=== PATIENT | male | born 1940 | race Caucasian/White ===

== ENCOUNTER → 2019-01-21 | Outpatient (REF) | payer MEDICARE | LOC: M SMT 13:09 | PROVIDERS: ATTEND Nurse Practitioner Family | DX: R97.8 Other abnormal tumor markers (principal) | CPT/HCPCS: 87086; G0463 ==

== ENCOUNTER 2019-02-15 21:38 | Emergency (ER) | payer MEDICARE ==
[~2019-02-15] VITALS: Ht 177.8 cm; Wt 109.1 kg
[2019-02-15 22:15] LABS: BASO % 0.5 % (0.0-1.0); EOS # 0.4 10^3/uL (0.0-0.5); EOS % 4.7 % (0.0-3.0); HEMATOCRIT 42.7 % (42.0-52.0); HEMOGLOBIN 14.2 g/dl (13.5-17.5); LYMPH # 2.7 10^3/uL (1.5-5.0); LYMPH % 32.4 % (24.0-44.0); MEAN CORPUSCULAR HEMOGLOBIN 31.2 pg (27.0-33.0); MEAN CORPUSCULAR HGB CONC 33.3 g/dl (32.0-36.5); MEAN CORPUSCULAR VOLUME 93.8 fl (80.0-96.0); MONO # 0.6 10^3/uL (0.0-0.8); MONO % 7.3 % (0.0-5.0); NEUTROPHILS # 4.5 10^3/uL (1.5-8.5); NEUTROPHILS % 54.9 % (36.0-66.0); PLATELET COUNT, AUTOMATED 209 10^3/uL (150-450); RED BLOOD COUNT 4.55 10^6/uL (4.30-6.10); WHITE BLOOD COUNT 8.3 10^3/uL (4.0-10.0)
[2019-02-15] MEDS ORDERED: MORPHINE 2 MG/ML 1ML SYRINGE (J2270) IV ONE (22:15)
[2019-02-15] MEDS ORDERED: METOCLOPRAMIDE INJ 10MG/2ML VIAL (J2765) IV ONE (22:15)
[2019-02-15] MEDS ORDERED: KETOROLAC 30 MG/ML VIAL (J1885) IV ONE (22:15)
[2019-02-15] MEDS ORDERED: FLOM0.4C39 PO (22:23)
[2019-02-15] MEDS ORDERED: LOSA50TA88 PO (22:23)
[2019-02-15 22:36] LABS: ALT/SGPT 30 U/L (12-78); BILIRUBIN,DIRECT < 0.1 MG/DL (0.0-0.2); BILIRUBIN,TOTAL 0.3 MG/DL (0.2-1.0); BLOOD UREA NITROGEN 19 MG/DL (7-18); CALCIUM LEVEL 9.2 MG/DL (8.8-10.2); CARBON DIOXIDE LEVEL 32 MEQ/L (21-32); CHLORIDE LEVEL 104 MEQ/L (98-107); CK-MB VALUE MASS 4.9 NG/ML (<3.6); CPK CREATINE PHOSPHOKINASE 290 U/L (39-308); CREATININE FOR GFR 1.44 MG/DL (0.70-1.30); GLOMERULAR FILTRATION RATE 50.5 (>42); GLUCOSE, FASTING 131 MG/DL (70-100); LIPASE 144 U/L (73-393); MB/CK RELATIVE INDEX 1.69 (< OR =4); POTASSIUM SERUM 4.2 MEQ/L (3.5-5.1); SODIUM LEVEL 142 MEQ/L (136-145); TOTAL PROTEIN 6.9 GM/DL (6.4-8.2); TROPONIN I < 0.02 NG/ML (< 0.10)
[2019-02-15] MEDS: NS 1,000 ML IV SCH (22:57)
[2019-02-15] MEDS ORDERED: ISOVUE-370 76% 100ML VIAL (Q9967) As Ordered ONE (22:57)
[2019-02-16] MEDS: NS 1,000 ML IV SCH (02:15)
[2019-02-16 02:51] LABS: CK-MB VALUE MASS 4.9 NG/ML (<3.6); MB/CK RELATIVE INDEX 1.81 (< OR =4); TROPONIN I 0.03 NG/ML (< 0.10)
[2019-02-16] MEDS ORDERED: MORPHINE 4 MG/ML 1ML VIAL/SYRINGE (J2270) IV ONE (03:15)
[2019-02-16] MEDS ORDERED: VICO5TAB17 PO ×2 (03:16→03:17)
[2019-02-16 03:27] VITALS: BP 172/74
--- NOTE | 2019-02-16 11:22 | REP ---
AP PORTABLE CHEST: 02/15/2019. Clinical history: Chest pain. Comparison: Chest x-ray 11/06/2012. Findings AP portable chest shows lungs hypoinflated. Some left ventricular configuration of the heart. Some crowding of markings in the bases but without dense consolidation. No definite effusion or edema. The aorta is mildly tortuous without gross aneurysm. Airway intact bony thorax shows degenerative changes in the spine. Impression: 1. Hypoinflated chest with crowded markings but no dense consolidation. 2. Left ventricular configuration of the heart. No edema or gross effusion. Electronically Signed by Messi Pino MD 02/16/2019 07:01 P
--- NOTE | 2019-02-17 08:06 | REPVR ---
PROCEDURE INFORMATION: Exam: CT Abdomen With Contrast Exam date and time: 02/15/2019 11:18 PM Clinical history: 78 years old, male; Abdominal pain; Epigastric; Additional info: Epigastric pain TECHNIQUE: Imaging protocol: Computed tomography images of the abdomen with intravenous contrast. Radiation optimization: All CT scans at this facility use at least one of these dose optimization techniques: automated exposure control; mA and/or kV adjustment per patient size (includes targeted exams where dose is matched to clinical indication); or iterative reconstruction. Contrast material: ISOVUE 370; Contrast volume: 100 ml; Contrast route: IV; COMPARISON: No relevant prior studies available. FINDINGS: Lungs: Dependent subsegmental pulmonary atelectasis. Liver: Normal. No mass. Gallbladder and bile ducts: Gallbladder distention with multiple gallstones, correlate. Pancreas: Pancreas atrophy. Spleen: Normal. No splenomegaly. Adrenals: Normal. No mass. Kidneys and ureters: 5 x 5.6 x 5.4 cm left inferior pole enhancing mass, renal carcinoma until proven otherwise. Recommend surgical consultation. Stomach and bowel: Normal. No obstruction. No mucosal thickening. Intraperitoneal space: Unremarkable. No free air. No significant fluid collection. Lymph nodes: No abdominal adenopathy. Vasculature: Mild to moderate aortic and iliac artery atherosclerotic calcification. Mild renal artery origin stenosis. Bones/joints: Bones are demineralized. Nonaggressive lucency within the right posterior iliac wing measuring 2.4 cm. Severe L4-5 spinal stenosis. Soft tissues: Small fat protruding umbilical hernia. Other findings: Small hiatal hernia with gastroesophageal junction thickening, correlate for esophagitis. IMPRESSION: 1. 5 x 5.6 x 5.4 cm left inferior pole enhancing mass, renal carcinoma until proven otherwise. Recommend surgical consultation. 2. Small hiatal hernia with gastroesophageal junction thickening, correlate for esophagitis. 3. Gallbladder distention with multiple gallstones, correlate. 4. Bones are demineralized. Nonaggressive lucency within the right posterior iliac wing measuring 2.4 cm. 5. Severe L4-5 spinal stenosis. Electronically signed by: Hubert Grady On 02/16/2019 00:30:47 AM
--- NOTE | 2019-02-17 08:06 | REPVR ---
PROCEDURE INFORMATION: Exam: CT Chest With Contrast Exam date and time: 02/15/2019 11:18 PM Clinical history: 78 years old, male; Pain; Other: Epigastric; Additional info: Epigastric pain TECHNIQUE: Imaging protocol: Computed tomography of the chest with intravenous contrast. Radiation optimization: All CT scans at this facility use at least one of these dose optimization techniques: automated exposure control; mA and/or kV adjustment per patient size (includes targeted exams where dose is matched to clinical indication); or iterative reconstruction. Contrast material: ISOVUE 370; Contrast volume: 100 ml; Contrast route: IV; COMPARISON: CR PORTABLE CHEST X-RAY 02/15/2019 10:05 PM FINDINGS: Limitations: Limited by patient's body habitus. Lungs: Unremarkable. No consolidation. No masses. Pleural space: Unremarkable. No pneumothorax. No pleural effusion. Heart: Mild cardiac enlargement with moderate left anterior descending coronary artery calcifications. Mediastinum: Gastroesophageal thickening with a small hiatal hernia, correlate for gastroesophagitis and/or mucosal lesion. Aorta: Unremarkable. No aortic aneurysm. Lymph nodes: Unremarkable. No enlarged lymph nodes. Bones/joints: No visualized lytic or destructive bone lesions within the chest. Soft tissues: Unremarkable. IMPRESSION: Gastroesophageal thickening with a small hiatal hernia, correlate for gastroesophagitis and/or mucosal lesion. Electronically signed by: Hubert Grady On 02/16/2019 00:38:21 AM
--- NOTE | 2019-02-17 08:20 | ECGEPIP ---
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
--- NOTE | 2019-02-17 08:23 | ECGEPIP ---
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
== END 2019-02-16 03:45 | disposition home or self-care (01) ==
LOC: M ED 21:38
DX: R07.89 Other chest pain (principal); N28.89 Other specified disorders of kidney and ureter; R11.0 Nausea; I10 Essential (primary) hypertension; Z79.899 Other long term (current) drug therapy
CPT/HCPCS: 71045; 71260; 74160; 80048; 80076; 81001; 82550; 82553; 83690; 84484; 85025; 93005; 93041; 94760; 96374; 96375; 96376; 99285; J1885; J2270; J2765; Q9967

== ENCOUNTER → 2019-04-21 | Outpatient (REF) | payer MEDICARE ==
[~2019-04-21] MED LIST: FLOM0.4C39 PO; LOSA50TA88 PO; VICO5TAB17 PO
[2019-04-21 11:04] LABS: APPEARANCE, URINE CLEAR (CLEAR); BACTERIA, URINE AUTO NEGATIVE (NEGATIVE); BILIRUBIN, URINE AUTO NEGATIVE (NEGATIVE); BLOOD, URINE BLOOD NEGATIVE (NEGATIVE); COLOR, URINE YELLOW (YELLOW); GLUCOSE, URINE (UA) AUTO NEGATIVE (NEGATIVE); KETONE, URINE AUTO NEGATIVE (NEGATIVE); LEUKOCYTE ESTERASE, URINE AUTO NEGATIVE (NEGATIVE); MUCUS, URINE MODERATE (NEGATIVE); NITRITE, URINE AUTO NEGATIVE (NEGATIVE); PROTEIN, URINE AUTO NEGATIVE (NEGATIVE); RBC, URINE AUTO 0 /HPF (0-3); SPECIFIC GRAVITY URINE AUTO 1.021 (1.002-1.035); SQUAMOUS EPITHELIAL CELL UR AU 0 /HPF (0-6); UROBILINOGEN, URINE AUTO 0.2 mg/dL (0.0-2.0); WBC, URINE AUTO 0 /HPF (0-3)
== END ==
LOC: M LAB REF 10:40
PROVIDERS: ATTEND Urology
DX: D41.02 Neoplasm of uncertain behavior of left kidney (principal)

== ENCOUNTER 2019-06-11 01:16 | Emergency (ER) | payer MEDICARE ==
[~2019-06-11] VITALS: Ht 177.8 cm; Wt 95.5 kg
[2019-06-11] MEDS ORDERED: OXYC-517 PO (01:27)
[2019-06-11] MEDS ORDERED: ONDA-83 PO (01:27)
[2019-06-11 02:31] LABS: BASO % 0.1 % (0.0-1.0); EOS % 0.2 % (0.0-3.0); LYMPH # 0.8 10^3/uL (1.5-5.0); LYMPH % 8.6 % (24.0-44.0); MEAN CORPUSCULAR HEMOGLOBIN 29.5 pg (27.0-33.0); MEAN CORPUSCULAR HGB CONC 31.7 g/dl (32.0-36.5); MONO # 0.6 10^3/uL (0.0-0.8); NEUTROPHILS % 84.8 % (36.0-66.0); PLATELET COUNT, AUTOMATED 176 10^3/uL (150-450); RED BLOOD COUNT 4.41 10^6/uL (4.30-6.10); WHITE BLOOD COUNT 9.4 10^3/uL (4.0-10.0)
[2019-06-11 02:54] LABS: ALBUMIN 3.9 GM/DL (3.2-5.2); ALT/SGPT 74 U/L (12-78); AMYLASE 37 U/L (25-115); BILIRUBIN,DIRECT 0.2 MG/DL (0.0-0.2); BILIRUBIN,TOTAL 0.6 MG/DL (0.2-1.0); BLOOD UREA NITROGEN 29 MG/DL (7-18); CALCIUM LEVEL 9.1 MG/DL (8.8-10.2); CARBON DIOXIDE LEVEL 29 MEQ/L (21-32); CHLORIDE LEVEL 105 MEQ/L (98-107); CK-MB VALUE MASS < 1.0 NG/ML (<3.6); CPK CREATINE PHOSPHOKINASE 85 U/L (39-308); CREATININE FOR GFR 2.12 MG/DL (0.70-1.30); GLOMERULAR FILTRATION RATE 32.3 (>42); GLUCOSE, FASTING 124 MG/DL (70-100); LIPASE 63 U/L (73-393); MB/CK RELATIVE INDEX 1.18 (< OR =4); POTASSIUM SERUM 5.3 MEQ/L (3.5-5.1); SODIUM LEVEL 140 MEQ/L (136-145); TOTAL PROTEIN 6.7 GM/DL (6.4-8.2); TROPONIN I < 0.02 NG/ML (< 0.10)
[2019-06-11] MEDS ORDERED: NS 500 ML IV ONE (04:15)
[2019-06-11] MEDS ORDERED: ONDANSETRON 4MG/2ML VIAL (J2405) IV ONE (05:15)
[2019-06-11] MEDS ORDERED: ONDANSETRON 4MG/2ML VIAL (J2405) As Ordered ONE (05:15)
[2019-06-11] MEDS: GASTROGRAFIN SOLUTION 30ML PO SCH ×2 (05:18→05:45)
--- NOTE | 2019-06-11 06:20 | ECGEPIP ---
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
--- NOTE | 2019-06-11 07:41 | REPVR ---
PROCEDURE INFORMATION: Exam: CT Abdomen And Pelvis Without Contrast Exam date and time: 06/11/2019 4:28 AM Age: 78 years old Clinical indication: Abdominal pain; Localized; Left lower quadrant (llq); Additional info: Llq pain TECHNIQUE: Imaging protocol: Computed tomography of the abdomen and pelvis without contrast. Radiation optimization: All CT scans at this facility use at least one of these dose optimization techniques: automated exposure control; mA and/or kV adjustment per patient size (includes targeted exams where dose is matched to clinical indication); or iterative reconstruction. COMPARISON: CT ABD W/IV CONTRAST ONLY 02/15/2019 11:12 PM FINDINGS: Limitations: Evaluation is somewhat limited by lack of IV contrast. Lungs: The visualized lung bases demonstrate minor dependent atelectasis. Mediastinum: A small hiatal hernia is again present. Liver: Grossly unremarkable. Gallbladder and bile ducts: There has been interval cholecystectomy and placement of a common bile duct stent. Pancreas: Grossly unremarkable. Spleen: A small splenule is again present. The spleen itself appears grossly unremarkable. Adrenals: Grossly unremarkable. Kidneys and ureters: There has been interval left nephrectomy. A new oblong collection in the left renal fossa measuring up to 2.0 x 2.7 x 6.6 cm may represent a postoperative seroma or necrotic lymph node. The right kidney appears grossly unremarkable. Stomach and bowel: The small bowel is not obstructed. The large bowel is grossly unremarkable in appearance. Appendix: The appendix is not identified, but there are no inflammatory changes in its expected region. Intraperitoneal space: No free air or significant free fluid. Vasculature: Coronary artery calcifications are again present. The abdominal aorta is nonaneurysmal. Atherosclerotic vascular calcifications are again present. Lymph nodes: No gross pathologic lympadenopathy is evident. Bladder: Grossly unremarkable. Reproductive: The prostate is large, measuring 5.2 x 4.4 cm. Bones/joints: Degenerative changes involve the spine, sacroiliac joints and hips. The bones appear osteopenic. Soft tissues: There is a small fat containing left inguinal hernia. Previous fat containing right paraumbilical hernia has been reduced. There is mild scarring along the anterior abdominal wall, related to the surgeries. IMPRESSION: 1. Interval left nephrectomy since 02/15/19. New oblong collection in the left renal fossa measuring up to 6.6 cm may represent a postoperative seroma or necrotic lymph node. 2. Interval cholecystectomy and placement of common bile duct stent. 3. Similar small hiatal hernia. 4. Interval reduction of previous fat containing right paraumbilical hernia. 5. Small fat containing left inguinal hernia. 6. Large prostate. Electronically signed by: Naresh Lopez On 06/11/2019 07:41:21 AM
[2019-06-11] MEDS ORDERED: METOCLOPRAMIDE INJ 10MG/2ML VIAL (J2765) IV ONE (10:15)
[2019-06-11 11:22] VITALS: BP 143/67
[2019-06-11] MEDS ORDERED: KEFL500C17 PO (11:23)
--- NOTE | 2019-06-11 14:45 | ED PDOC ---
Post-Departure Follow-Up tete vargas faxed formal report of ct abd/p for fu Reina Rosario MD Jun 11, 2019 14:45
== END 2019-06-11 11:45 | disposition home or self-care (01) ==
LOC: M ED 01:16
DX: R10.32 Left lower quadrant pain (principal); R93.5 Abnormal findings on diagnostic imaging of other abdominal regions, including retroperitoneum; R50.9 Fever, unspecified; R11.2 Nausea with vomiting, unspecified; N18.9 Chronic kidney disease, unspecified; Z85.528 Personal history of other malignant neoplasm of kidney; Z90.5 Acquired absence of kidney; N40.0 Benign prostatic hyperplasia without lower urinary tract symptoms; Z90.49 Acquired absence of other specified parts of digestive tract
CPT/HCPCS: 74176; 80048; 80076; 81001; 82150; 82550; 82553; 83605; 83690; 84484; 85025; 87040; 93005; 93041; 96361; 96374; 96375; 99285; J2405; J2765; Q9963

== ENCOUNTER → 2019-08-25 | Outpatient (REF) | payer MEDICARE ==
[~2019-08-25] MED LIST changes: +KEFL500C17 PO; +ONDA-83 PO; +OXYC-517 PO
[2019-08-25 14:18] LABS: CALCIUM LEVEL 9.2 MG/DL (8.8-10.2); CREATININE FOR GFR 1.85 MG/DL (0.70-1.30); GLOMERULAR FILTRATION RATE 37.7 (>42); POTASSIUM SERUM 4.8 MEQ/L (3.5-5.1)
== END ==
LOC: M LABNEURO 10:06
PROVIDERS: ATTEND Physician Assistant Surgical
DX: E87.5 Hyperkalemia (principal)

== ENCOUNTER → 2019-09-09 | Outpatient (CLI) | payer MEDICARE ==
--- NOTE | 2019-09-09 08:35 | REP ---
Clinical: Musculoskeletal oncology. Technique: AP and bilateral oblique views of the pelvis. Findings: Mild generalized age-related degenerative changes of the pelvis and bilateral hips noted. No acute traumatic or pathologic fracture/dislocation. No obvious lytic, blastic, or sclerotic lesion is appreciated. Surrounding soft tissues are grossly unremarkable. Impression: Generalized age-related degenerative changes noted. No obvious acute/aggressive lesion identified. Electronically Signed by Julius Pozo MD 09/09/2019 08:26 A
--- NOTE | 2019-09-09 10:52 | REP ---
MRI PELVIS WITHOUT CONTRAST: Multiple sequences obtained in the axial, coronal and sagittal planes without the use of intravenous contrast. In the posterior right iliac bone, there is a well-defined bone lesion which is hypointense on T1 and hyperintense on T2. It measures 2.6 x 2.5 x 1.8 cm. Margins are well defined and mildly scalloped in appearance. No other bone lesion is seen in the pelvis. There are degenerative changes of the lower lumbar spine. There are degenerative changes at the right sacroiliac joint with mild subchondral marrow edema inferiorly in the sacrum. There are mild degenerative changes of both hips. Tiny amount of free fluid is seen in the pelvis. There is a small left inguinal hernia containing fat. IMPRESSION: Bone lesion posterior right iliac bone is hypointense on T1 and hyperintense on T2 with well-defined mildly scalloped margins. Sharp zone of transition would favor a benign lesion. There is no associated soft tissue mass. This measures 2.6 x 2.5 x 1.8 cm. It was present on the prior CT of 06/11/2019 and appears unchanged in size. Electronically Signed by Mauro Anthony MD 09/09/2019 04:56 P
--- NOTE | 2019-09-09 16:52 | REP ---
WHOLE BODY BONE SCAN: Following the intravenous administration of 22 mCi technetium 99m MDP, patient's whole body is imaged in the anterior and posterior projections. Additional oblique and lateral views are obtained. There is no abnormal uptake at the site of the bone lesion in the posterior right iliac bone. Small focus of increased uptake is seen at the proximal left tibiofibular articulation. There appears to be mild arthritic uptake at the sacroiliac joints bilaterally. There is no compelling scintigraphic evidence of osseous metastases. IMPRESSION: No abnormal uptake at the site of the bone lesion in the posterior right iliac bone. This favors a benign lesion. Electronically Signed by Mauro Anthony MD 09/09/2019 05:05 P
== END ==
LOC: M RAD 07:46
PROVIDERS: ATTEND Orthopaedic Surgery
DX: Z85.528 Personal history of other malignant neoplasm of kidney (principal); M85.851 Other specified disorders of bone density and structure, right thigh
CPT/HCPCS: 72190; 72195; 78306; A9503

== ENCOUNTER → 2019-10-14 | Outpatient (CLI) | payer MEDICARE ==
[2019-10-14 16:28] LABS: CALCIUM LEVEL 9.5 MG/DL (8.8-10.2); CREATININE FOR GFR 1.78 MG/DL (0.70-1.30); GLOMERULAR FILTRATION RATE 39.4 (>42); POTASSIUM SERUM 4.9 MEQ/L (3.5-5.1)
== END ==
LOC: M LRY 10:52
PROVIDERS: ATTEND Physician Assistant Surgical
DX: E87.5 Hyperkalemia (principal)

== ENCOUNTER → 2020-09-20 | Outpatient (CLI) | payer MEDICARE ==
--- NOTE | 2020-09-20 14:18 | REP ---
INDICATION: CHRONIC LEFT HIP AND LOW BACK PAIN. COMPARISON: None. TECHNIQUE: Two views left hip. FINDINGS: There is no acute fracture or dislocation. The hip joint demonstrates mild joint space narrowing, subchondral sclerosis and spurring. IMPRESSION: Mild degenerative changes. <Electronically signed by Mauro Anthony > 09/20/20 [id number]
--- NOTE | 2020-09-20 14:20 | REP ---
INDICATION: CHRONIC LEFT HIP AND LOW BACK PAIN. COMPARISON: None. TECHNIQUE: Five views lumbosacral spine. FINDINGS: There is no compression fracture. There is normal lumbar lordosis and alignment. There is mild diffuse spurring. There is very mild disc space narrowing and subchondral sclerosis at L4-5 and L5-S1, with sclerosis and spurring at the posterior facet joints at those levels. Posterior elements are intact. Scattered vascular calcifications are present. The metallic clips in the right upper quadrant. IMPRESSION: Mild degenerative changes. No evidence of fracture or dislocation. <Electronically signed by Mauro Anthony > 09/20/20 [id number]
== END ==
LOC: M WUC 12:11
PROVIDERS: ATTEND Physician Assistant
DX: M25.552 Pain in left hip (principal); M54.5 Low back pain

== ENCOUNTER → 2020-12-06 | Outpatient (CLI) | payer MEDICARE ==
--- NOTE | 2020-12-07 23:40 | ECWPNPC ---
PATIENT NAME: FOREST UPTON : 1940 GENDER: MALE VISIT DATE: 12/06/2020 DISCHARGE DATE: 12/06/20922 VISIT LOCKED DATE TIME: PHYSICIAN: HERMINIA DEVI RESOURCE: HERMINIA DEVI REASON FOR APPOINTMENT 1. BACK PAIN HISTORY OF PRESENT ILLNESS GENERAL: HPI 80-YEAR-OLD MALE IN WITH COMPLAINTS OF PAIN SHOOTING DOWN HIS LEFT LEG. PATIENT RATES HIS PAIN CURRENTLY AT A 1 OUT OF 10 BUT STATES THE LEVEL VARIES WITH ACTIVITY. HE DESCRIBES THE PAIN ACHING, BURNING, AND CONTINUOUS. HE DENIES INTERVENTIONS AND/OR MEDICATIONS PRESCRIBED TO HIM IN THE PAST.. - - - -. FALL RISK SCREENING: SCREENING FEW FALLS REPORTED IN THE LAST YEAR WITHOUT INJURY.. PAIN SCREENING: PATIENT HAS A COMPLAINT OF ACUTE OR CHRONIC PAIN :YES LOCATION OF PAIN:LOW BACK, LEFT HIP INTENSITY OF PAIN (SCALE OF 1 TO 10):1 PAIN LEVEL VARIES WHAT DOES YOUR PAIN FEEL LIKE:ACHING, BURNING, CONTINOUS, SHARP, STABBING, TENDER, THROBBING, SORE, SHOOTING DURATION:CONTINOUS, AWAKENS FROM SLEEP PAIN IS INCREASED BY:ACTIVITIES, PROLONGED STANDING PAIN IS DECREASED BY:SITTING, OTHERS ICE PACK HELPS TEMPORARILY NURSING NOTE: - - - -. PAIN CENTER INTAKE QUESTIONS: DO YOU HAVE A HISTORY OF MRSA? :NO DO YOU TAKE A BLOOD THINNERS? :NO DO YOU HAVE ANY BLEEDING DISORDERS? :NO ANY NEW NUMBNESS OR WEAKNESS IN YOUR LEGS OR ARMS? :YES BILATERAL WEAKNESS IN LEGS ANY PACEMAKER,DEFIBRILLATOR, OR DORSAL COLUMN STIMULATOR? :NO DO YOU HAVE ANY RASHES OR OPEN SORES? :NO ARE YOU ALLERGIC TO IV DYE? :YES KIDNEY ISSUES ARE YOU DIABETIC? :NO ANY NEW PROBLEMS WITH YOUR MEDICATIONS? :NO HAVE YOU RECEIVED A VACCINE IN THE PAST 30 DAYS? :NO DO YOU PLAN TO RECEIVE A VACCINE IN THE NEXT 21 DAYS? :NO DO YOU NEED ANY PRESCRIPTION? :NO DO YOU TAKE ANY IMMUNOSUPPRESSIVE MEDICATIONS? :NO IS THERE A CHANCE YOU COULD BE ? :NO ARE YOU BREAST FEEDING? :NO CURRENT MEDICATIONS TAKING CO Q 10 60 MG CAPSULE 1 CAPSULE WITH A MEAL ORALLY ONCE A DAY TAKING TAMSULOSIN HCL 0.4 MG CAPSULE EXTENDED RELEASE 24 HOUR 1 CAPSULE 30 MINUTES AFTER THE SAME MEAL EACH DAY ORALLY ONCE A DAY TAKING MULTI FOR HIM 50+ - TABLET ORALLY TAKING FINASTERIDE 5 MG TABLET 1 TABLET ORALLY ONCE A DAY MEDICATION LIST REVIEWED AND RECONCILED WITH THE PATIENT PAST MEDICAL HISTORY HYPERTENSION ELEVATED PSA ALLERGIES CODEINE: SEVERE HEADACHE - ALLERGY SURGICAL HISTORY APPENDIX REMOVED TONSILS REMOVED COLONOSCOPY ORTHO SURGERY ON BILATERAL ELBOWS 1985 CHOLECYSTECTOMY 2019 LEFT KIDNEY REMOVED 04/30/2019 FAMILY HISTORY FATHER: MOTHER: SON HAS HAD KIDNEY STONES. SOCIAL HISTORY GENERAL: TOBACCO USE ARE YOU A:FORMER SMOKER LATEX QUESTIONNAIRE LATEX ALLERGY : HAVE YOU EVER DEVELOPED ANY TYPE OF REACTION AFTER HANDLING LATEX PRODUCTS SUCH RUBBER GLOVES, CONDOMS, DIAPHRAGMS, BALLOONS, SOCKS, OR UNDERWEAR?NO LATEX ALLERGY : HAVE YOU EVER DEVELOPED ANY TYPE OF REACTION DURING OR AFTER DENTAL APPOINTMENT, VAGINAL/RECTAL EXAMINATION, SURGICAL PROCEDURE, OR ANY OTHER EXPOSURE?NO LATEX RISK : HAVE YOU EVER HAD ANY DIFFICULTY BREATHING OR HIVES AFTER EATING OR HANDLING ANY FRUITS, OR VEGETABLES; SUCH KIWI, BANANAS, STONE FRUITS, OR CHESTNUTSNO LATEX RISK : DO YOU HAVE A PREVIOUS PERSONAL HISTORY OF MORE THAN NINE SURGERIES, SPINA BIFIDA, OR REPEATED CATHERIZATIONS? NO LATEX RISK : ARE YOU FREQUENTLY EXPOSED TO LATEX PRODUCTS IN YOUR OCCUPATION?NO DATE ASKED : 12/06/2020 ALCOHOL USE: NO. ALCOHOL SCREENING DID YOU HAVE A DRINK CONTAINING ALCOHOL IN THE PAST YEAR?YES HOW OFTEN DID YOU HAVE SIX OR MORE DRINKS ON ONE OCCASION IN THE PAST YEAR?NEVER (0 POINTS) HOW MANY DRINKS DID YOU HAVE ON A TYPICAL DAY WHEN YOU WERE DRINKING IN THE PAST YEAR?1 OR 2 (0 POINTS) HOW OFTEN DID YOU HAVE A DRINK CONTAINING ALCOHOL IN THE PAST YEAR?MONTHLY OR LESS (1 POINT) POINTS1 INTERPRETATIONNEGATIVE RECREATIONAL DRUG USE DRUG USE?NO CAFFEINE CAFFEINE USE?YES HOW OFTEN AND HOW MUCH? 3-4 CUPS A DAY SEXUAL HX HAD SEX IN THE LAST 12 MONTHS (VAGINAL, ORAL, OR ANAL)?NO HAVE YOU EVER HAD AN STD?NO HINDU HINDU NO MORMONISM BELIEFS THAT WOULD IMPACT HEALTH CARE. LANGUAGE LANGUAGES SPOKEN:UZBEK LEARNING BARRIERS / SPECIAL NEEDS CHANGE FROM LAST VISIT?NO BARRIERS TO LEARNING?NO HEARING IMPAIRED?NO VISION IMPAIRED?YES :CORRECTIVE LENSES COGNITIVELY IMPAIRED?NO READINESS TO LEARN?YES LEARNING PREFERENCES?NO LEARNING CAPABILITIES PRESENT?YES EMOTIONAL BARRIERS?NO SPECIAL DEVICES?NO ENVIRONMENTAL STUDIES PROGRAM DIRECTOR NEEDED?NO OCCUPATION: RETIRED. DIET: REGULAR. EXERCISE: NO REGULAR EXERCISE. MARITAL STATUS: . HOSPITALIZATION/MAJOR DIAGNOSTIC PROCEDURE SURGERY RELATED REVIEW OF SYSTEMS CONSTITUTIONAL: ANY RECENT FEVER NO . CHILLS NO . WEIGHT CHANGE OF UNKNOWN REASONS NO . MUSCULOSKELETAL: ANY UNUSUAL JOINT PAIN OR SWELLING NOT MENTIONED NO . SYSTEMIC LUPUS NO . ANY NEUROMUSCULAR DISORDER NOT MENTIONED NO . LYME DISEASE NO . GASTROENTEROLOGY: ANY NEW CHANGE IN BOWEL CONTROL? NO . HISTORY OF LIVER DISORDER NOT MENTIONED NO . HISTORY OF UNUSUAL ABDOMINAL PAIN OR CRAMPING NOT MENTIONED NO . NO CONSTIPATION. GENITOURINARY: ANY NEW CHANGE IN BLADDER CONTROL? NO . ANY RENAL/KIDNEY CONDITON NOT MENTIONED NO . NEUROLOGY: HISTORY OF TBI NOT MENTIONED NO . OTHER NEW NUMBNESS OR PAIN PATTERNS NOT MENTIONED NO . NEW ONSET DIZZINESS OR NEUROLOGICAL CHANGES NOT MENTIONED NO . HISTORY OF SEVERE HEADACHES NOT MENTIONED NO . HISTORY OF STROKE OR NEUROLOGICAL DISORDER NOT MENTIONED NO . CARDIOLOGY: HEART SURGERY NO . CONGESTIVE HEART FAILURE/FLUID OVERLOAD NOT MENTIONED NO . HISTORY OF CHEST PAIN,IRREGULAR HEART BEAT NOT MENTIONED NO . RESPIRATORY: SHORTNESS OF BREATH ON EXERTION, WHEEZES, UNUSUAL COUGH NOT MENTIONED NO . ENDOCRINOLOGY: ADRENAL GLAND OR THYROID DISORDERS NOT MENTIONED NO . UNUSUAL URINATION, DIZZINESS OR LETHARGY NOT MENTIONED NO . VITAL SIGNS WT 225.6 LBS, HT 70 IN, BMI 32.37 INDEX, BP 163/70 MM HG, HR 59 /MIN, RR 18 /MIN, TEMP 95.6 F, OXYGEN SAT % 94%, SAFE IN ENV? (Y/N) YES, NA INITIALS AW [id number], REVIEWED BY: FRANTZ SPICER MA. EXAMINATION GENERAL EXAMINATION: GENERALNO ACUTE DISTRESS, WELL NOURISHED AND HYDRATED. PSYCHAPPROPRIATE MOOD AND AFFECT . LUNGS:CLEAR TO AUSCULTATION BILATERALLY, NO WHEEZES, RHONCHI, RALES. HEART:NO MURMURS, REGULAR RATE AND RHYTHM. BACK:DENIES POINT TENDERNESS ALONG LUMBAR SPINE, NEGATIVE MODIFIED SLR BILATERALLY POSITIVE HAI'S TEST LEFT SIDE. ASSESSMENTS SACROILIITIS, NOT ELSEWHERE CLASSIFIED - M46.1 (PRIMARY) TREATMENT SACROILIITIS, NOT ELSEWHERE CLASSIFIED SALINE LOCK (ORDERED FOR 12/14/2020) MED: PAIN NORCO TABLET 5MG/325MG ORALLY HYDROCODONE/ACETAMINOPHEN (ORDERED FOR 12/14/2020) MEDICATION: PAIN VALIUM TAB 5MG ORALLY (DIAZEPAM) (ORDERED FOR 12/14/2020) NOTES: 80-YEAR-OLD MALE IN FOR INITIAL PAIN CONSULT. GIVEN PRESENTING SYMPTOMS AND RESULTS OF PHYSICAL EXAMINATION RECOMMEND LEFT SACROILIAC JOINT BLOCK WITH POSTPROCEDURAL FOLLOW-UP. PATIENT HAS EXPRESSED UNDERSTANDING OF AND WAS IN AGREEMENT WITH TREATMENT PLAN. GIVEN TIME TO ASK QUESTIONS AND EXPRESS CONCERNS. CLINICAL NOTES: PREPROCEDURE AND PROCEDURE INFORMATION PRINTED AND PROVIDED TO PATIENT. PATIENT VERBALIZED AN UNDERSTANDING. NASIR SPICER MA. PROCEDURE CODES FA211 ESTABILISHED PATIENT [facility] CHARGE DISPOSITION & COMMUNICATION FOLLOW UP POST PROCEDURE (REASON: LEFT SACROILIAC JOINT BLOCK ) ELECTRONICALLY SIGNED BY AZEEM PORTILLO ON 12/07/2020 AT 08:52 AM EDT DISCLAIMER : THIS IS A VISIT SUMMARY EXTRACTED FROM THE [employer] CHART. IT IS NOT A COPY OF THE [employer] PROGRESS NOTE. DORA
== END ==
LOC: M PAIN 08:30
PROVIDERS: ATTEND Family Medicine
DX: M46.1 Sacroiliitis, not elsewhere classified (principal); Z87.891 Personal history of nicotine dependence; Z88.5 Allergy status to narcotic agent; Z79.899 Other long term (current) drug therapy

== ENCOUNTER → 2020-12-17 | Outpatient (CLI) | payer MEDICARE | LOC: M LABSMTC 10:07 | PROVIDERS: ATTEND Anesthesiology | DX: Z20.828 Contact with and (suspected) exposure to other viral communicable diseases (principal); Z11.59 Encounter for screening for other viral diseases ==

== ENCOUNTER → 2020-12-22 | Outpatient (CLI) | payer MEDICARE ==
[~2020-12-22] MED LIST changes: +BUPIVACAINE HCL 0.25% 30ML VIAL As Ordered ONE; +ISOVUE-M 300 61% 15ML VIAL As Ordered ONE; +LIDOCAINE 1% SDV 30ML VIAL As Ordered ONE; +NORCO, ANEXSIA 5/325MG TABLET (HYDROcodone/ACETAMINOPHEN) As Ordered ONE; +TRIAMCINOLONE ACETONIDE SUSP 40 MG/ML VIAL (J3301) As Ordered ONE
--- NOTE | 2020-12-22 14:08 | REP ---
INDICATION: L SIJ. COMPARISON: None. TECHNIQUE: Two C-arm views left sacroiliac joint region. FINDINGS: A needle is seen in the region of the left sacroiliac joint. IMPRESSION: 28 seconds of fluoroscopy time was utilized. <Electronically signed by Mauro Anthony > 12/22/20 [id number]
--- NOTE | 2020-12-24 00:52 | ECWPNPC ---
PATIENT NAME: FOREST UPTON : 1940 GENDER: MALE VISIT DATE: 12/22/2020 DISCHARGE DATE: 12/22/20 1256 VISIT LOCKED DATE TIME: PHYSICIAN: EDNA LORENZANA MD RESOURCE: EDNA LORENZANA MD REASON FOR APPOINTMENT 1. LEFT SACROILIAC JOINT BLOCK HISTORY OF PRESENT ILLNESS GENERAL: - - - -. FALL RISK SCREENING: SCREENING FEW FALLS REPORTED IN THE LAST YEAR WITHOUT INJURY.. PAIN SCREENING: PATIENT HAS A COMPLAINT OF ACUTE OR CHRONIC PAIN :YES LOCATION OF PAIN:LOW BACK, LEFT HIP INTENSITY OF PAIN (SCALE OF 1 TO 10):6 -12/28 WHAT DOES YOUR PAIN FEEL LIKE:ACHING, THROBBING, SHOOTING DURATION:CONTINOUS, AWAKENS FROM SLEEP PAIN IS INCREASED BY:ACTIVITIES, PROLONGED STANDING PAIN IS DECREASED BY:SITTING PLAN/GOALS/TREATMENT/INTERVENTION/FOLLOW UP:SEE PLAN NURSING NOTE: - - - -. PAIN CENTER INTAKE QUESTIONS: DO YOU HAVE A HISTORY OF MRSA? :NO DO YOU TAKE A BLOOD THINNERS? :NO DO YOU HAVE ANY BLEEDING DISORDERS? :NO ANY NEW NUMBNESS OR WEAKNESS IN YOUR LEGS OR ARMS? :YES BILATERAL WEAKNESS IN LEGS ANY PACEMAKER,DEFIBRILLATOR, OR DORSAL COLUMN STIMULATOR? :NO DO YOU HAVE ANY RASHES OR OPEN SORES? :NO ARE YOU ALLERGIC TO IV DYE? :YES KIDNEY ISSUES ARE YOU DIABETIC? :NO ANY NEW PROBLEMS WITH YOUR MEDICATIONS? :NO HAVE YOU RECEIVED A VACCINE IN THE PAST 30 DAYS? :NO DO YOU PLAN TO RECEIVE A VACCINE IN THE NEXT 21 DAYS? :NO DO YOU NEED ANY PRESCRIPTION? :NO DO YOU TAKE ANY IMMUNOSUPPRESSIVE MEDICATIONS? :NO ANY HISTORY OF SEIZURES? :NO ANY HISTORY OF CARDIAC ISSUES OR EVENTS? :NO DO YOU HAVE ANY KIDNEY OR LIVER DISEASE? :YES ONE KIDNEY DO YOU HAVE SLEEP APNEA? :NO ANY RECENT HEAD INJURY? :NO DO YOU HAVE ANY NEW INFECTIONS? :NO IS THERE A CHANCE YOU COULD BE ? :N/A ARE YOU BREAST FEEDING? :N/A WHEN DID YOU LAST EAT? : 12/21/20 WHEN DID YOU LAST DRINK? : 12/22/20 7318 WHAT DID YOU LAST DRINK? : BLACK COFFEE NAME OF PERSON DRIVING YOU HOME? : ZAIDA SOTO DO YOU HAVE ANY OTHER QUESTIONS OR CONCERNS? : NO CURRENT MEDICATIONS TAKING CO Q 10 60 MG CAPSULE 1 CAPSULE WITH A MEAL ORALLY ONCE A DAY TAKING TAMSULOSIN HCL 0.4 MG CAPSULE EXTENDED RELEASE 24 HOUR 1 CAPSULE 30 MINUTES AFTER THE SAME MEAL EACH DAY ORALLY ONCE A DAY TAKING MULTI FOR HIM 50+ - TABLET ORALLY TAKING FINASTERIDE 5 MG TABLET 1 TABLET ORALLY ONCE A DAY MEDICATION LIST REVIEWED AND RECONCILED WITH THE PATIENT PAST MEDICAL HISTORY HYPERTENSION ELEVATED PSA ALLERGIES CODEINE: SEVERE HEADACHE - ALLERGY SOCIAL HISTORY GENERAL: TOBACCO USE ARE YOU A:FORMER SMOKER LATEX QUESTIONNAIRE LATEX ALLERGY : HAVE YOU EVER DEVELOPED ANY TYPE OF REACTION AFTER HANDLING LATEX PRODUCTS SUCH RUBBER GLOVES, CONDOMS, DIAPHRAGMS, BALLOONS, SOCKS, OR UNDERWEAR?NO LATEX ALLERGY : HAVE YOU EVER DEVELOPED ANY TYPE OF REACTION DURING OR AFTER DENTAL APPOINTMENT, VAGINAL/RECTAL EXAMINATION, SURGICAL PROCEDURE, OR ANY OTHER EXPOSURE?NO LATEX RISK : HAVE YOU EVER HAD ANY DIFFICULTY BREATHING OR HIVES AFTER EATING OR HANDLING ANY FRUITS, OR VEGETABLES; SUCH KIWI, BANANAS, STONE FRUITS, OR CHESTNUTSNO LATEX RISK : DO YOU HAVE A PREVIOUS PERSONAL HISTORY OF MORE THAN NINE SURGERIES, SPINA BIFIDA, OR REPEATED CATHERIZATIONS? NO LATEX RISK : ARE YOU FREQUENTLY EXPOSED TO LATEX PRODUCTS IN YOUR OCCUPATION?NO DATE ASKED : 12/21/2020 ALCOHOL USE: NO. ALCOHOL SCREENING DID YOU HAVE A DRINK CONTAINING ALCOHOL IN THE PAST YEAR?YES HOW OFTEN DID YOU HAVE A DRINK CONTAINING ALCOHOL IN THE PAST YEAR?MONTHLY OR LESS (1 POINT) HOW MANY DRINKS DID YOU HAVE ON A TYPICAL DAY WHEN YOU WERE DRINKING IN THE PAST YEAR?1 OR 2 (0 POINTS) HOW OFTEN DID YOU HAVE SIX OR MORE DRINKS ON ONE OCCASION IN THE PAST YEAR?NEVER (0 POINTS) POINTS1 INTERPRETATIONNEGATIVE RECREATIONAL DRUG USE DRUG USE?NO CAFFEINE CAFFEINE USE?YES HOW OFTEN AND HOW MUCH? 3-4 CUPS A DAY SEXUAL HX HAD SEX IN THE LAST 12 MONTHS (VAGINAL, ORAL, OR ANAL)?NO HAVE YOU EVER HAD AN STD?NO ORIENTAL ORTHODOX ORIENTAL ORTHODOX NO UATSDIN BELIEFS THAT WOULD IMPACT HEALTH CARE. LANGUAGE LANGUAGES SPOKEN:[place] LEARNING BARRIERS / SPECIAL NEEDS CHANGE FROM LAST VISIT?NO BARRIERS TO LEARNING?NO HEARING IMPAIRED?NO VISION IMPAIRED?YES :CORRECTIVE LENSES COGNITIVELY IMPAIRED?NO READINESS TO LEARN?YES LEARNING PREFERENCES?NO LEARNING CAPABILITIES PRESENT?YES EMOTIONAL BARRIERS?NO SPECIAL DEVICES?NO VIDEOTAPE OPERATOR NEEDED?NO OCCUPATION: RETIRED. DIET: REGULAR. EXERCISE: NO REGULAR EXERCISE. MARITAL STATUS: . VITAL SIGNS WT 223 LBS, WT-KG 101.15 KG, HT 70 IN, BMI 31.99 INDEX, BP 189/81 MM HG, REPEAT BP 140/80 MM HG, HR 58 /MIN, RR 18 /MIN, TEMP 97.0 F, OXYGEN SAT % 100%, NA INITIALS SC 10:30REPEAT B/P IS MANUAL. EM. EXAMINATION GENERAL: A HISTORY AND PHYSICAL EXAM ON THE PATIENT WAS DONE ON 12/06/2020 (DATE OF ORIGINAL ASSESSMENT) IN PREPARATION OF SURGERY/PROCEDURE. I HAVE NOW REASSESSED THIS PATIENT'S HEALTH STATUS AND PERFORMED AN UPDATED EXAM TODAY. ALL CHANGES IN THE PATIENT'S HISTORY, PHYSICAL EXAM, PRE-EXISTING CONDITONS, AND INDICATIONS/CONTRAINDICATIONS TO THE PLANNED PROCEDURE AND ANESTHESIA ARE DOCUMENTED AND EVALUATED BELOW. I ATTEST TO THE ADEQUACY AND APPROPRIATENESS OF MY ASSESSMENT, AND CONFIRM THE NECESSITY FOR THE PLANNED PROCEDURE. THE PATIENT IS ALERT, ORIENTED TIMES THREE AND COOPERATIVE. LUNGS ARE CLEAR TO AUSCULTATION. HEART SHOWS REGULAR RHYTHM, NO MURMURS AND NO GALLOPS. ASSESSMENTS SACROILIITIS, NOT ELSEWHERE CLASSIFIED - M46.1 (PRIMARY) TREATMENT SACROILIITIS, NOT ELSEWHERE CLASSIFIED [facility] FLUORO GUIDANCE (PAIN)[id number] COMPLETION OF PROCEDURAL VISIT WHEN MEETS [id number],ELIZABETH 12/22/2020 12:58:39 PM > CRITERIA MET SALINE [id number],ELIZABETH 12/22/2020 10:52:06 AM > 22 G STARTED TO LEFT AC, GOOD FLASHBACK, FLUSHES EASILY, PT DENIES PAIN. MED: PAIN NORCO TABLET 5MG/325MG ORALLY HYDROCODONE/[id number],TOM 12/22/2020 10:40:55 AM > VERIFIED KI HERMAN 12/22/2020 10:51:25 AM > ADMINISTERED OTHERS NOTES: 12/21/20 ROXANA MORENO, CATERING DRIVER. PROCEDURES PAIN NURSING RECORD PROCEDURE IN ROOM 1200, PHYSICIAN IN ROOM 1220, START 1224, FINISH 1228, PHYSICIAN OUT OF ROOM 1229, OUT OF ROOM 1235, ECG NORMAL SINUS, PATIENT SHIELDED YES, SAFETY STRAP YES, PREP CHLOROPREP, DRESSING TEGADERM DR. LORENZANA LOC: 1. ALERT, ORIENTED, KI HERMAN 12/22/2020 12:25:37 PM > RESP: 1. REGULAR, NO DYSPNEA, KI HERMAN 12/22/2020 12:25:41 PM > COLOR: 1. PINK, KI HERMAN 12/22/2020 12:25:45 PM > SKIN: 1. WARM, DRY, KI HERMAN 12/22/2020 12:25:50 PM > POSITION: 1. PRONE, KI HERMAN 12/22/2020 12:25:54 PM > VITALS: 200/84, 60, 16, 99% JUSTUS HERMANBETH 12/22/2020 12:15:25 PM > 195/84, 60, 16, 98% KI HERMAN 12/22/2020 12:30:58 PM > , 145/65, 59, 16, 99%, JUSTUS HERMANBETH 12/22/2020 12:45:34 PM > NOTES Leonardo HERMAN RN, KI HERMAN 12/22/2020 11:23:35 AM > COMPLETION OF PROCEDURE APPOINTMENT: POST PAIN 3, DRESSING SITE DRY AND INTACT, IV DISCONTINUED, SITE CLEAR, CATHETER INTACT, GAIT STEADY, TEACHING COMPLETED, PATIENT ACKNOWLEDGES UNDERSTANDING YES, PROCEDURE APPOINTMENT COMPLETED AT 1255 PRE PROCEDURE DIAGNOSIS SACROILITIS, SACROILIAC JOINT DYSFUNCTION POST PROCEDURE DIAGNOSIS SACROILIITIS, SACROILIAC JOINT DYSFUNCTION PROCEDURE LEFT SACROILIAC JOINT BLOCK SURGEON DR. EDNA LORENZANA CONTROL SYSTEM COMPUTER SCIENTIST NONE ANESTHESIA LOCAL PRE PROCEDURE NOTE THE PATIENT HAS A HISTORY OF CHRONIC LOW BACK PAIN. I EVALUATED THE PATIENT AND REVIEWED THE CHART. I WENT OVER THE RISKS, BENEFITS AND ALTERNATIVES ASSOCIATED WITH THIS PROCEDURE. THE PATIENT WOULD LIKE TO PROCEED AND GIVES CONSENT TO PERFORM THE PROCEDURE. THE PATIENT DENIES UNEXPLAINABLE WEIGHT LOSS, FEVER, CHILLS OR NEW CHANGES IN URINARY OR BOWEL CONTROL. THE PATIENT IS COVID-19 NEGATIVE. DESCRIPTION OF PROCEDURE THE PATIENT WAS BROUGHT TO THE PROCEDURE ROOM AND PLACED IN THE PRONE POSITION. THE LUMBOSACRAL AREA WAS CLEANED WITH CHLORAPREP SOLUTION AND DRAPED ASEPTICALLY. THE PROCEDURE WAS DONE UNDER STERILE CONDITIONS. A TIMEOUT WAS PERFORMED WHERE THE CONSENTED SITE WAS VERIFIED WITH EVERYONE IN THE ROOM UNDER FLUOROSCOPIC GUIDANCE, THE TARGET POINT WAS SELECTED AT THE LOWER BORDER OF THE LEFT SACROILIAC JOINT. TARGET POINT WAS SELECTED AFTER MEDIAL ROTATION AND TILT OF THE MAGNIFIER OR THE C-ARM. I CONFIRMED AGAIN THE SITE OF TARGET. LIDOCAINE 0.5% WAS USED TO NUMB THE SKIN AND THE SUBCUTANEOUS TISSUE BELOW IT. SPINAL NEEDLE, 22-GAUGE, WAS ADVANCED UNDER FLUOROSCOPIC GUIDANCE AND FOLLOWING PATIENT FEEDBACK UNTIL THE TARGET WAS TOUCHED. THE POSITION OF THE NEEDLE WAS VERIFIED WITH AP AND OBLIQUE VIEWS. AFTER PROPER POSITION OF THE NEEDLE WAS ACHIEVED, ISOVUE-M DYE 30%, 0.1 ML, WAS INJECTED SHOWING ADEQUATE SPREAD OF THE DYE. KENALOG 40 MG WAS INJECTED. THEN, A SOLUTION OF 3.0 ML OF BUPIVACAINE 0.125% WAS USED TO FLUSH THE NEEDLE. THE MEDICATIONS WERE VERIFIED WITH THE NURSE. THERE WAS NO EVIDENCE OF BLOOD, PARESTHESIA OR CEREBROSPINAL FLUID DURING THE PROCEDURE. THE PATIENT WAS SENT TO THE RECOVERY ROOM. THE PATIENT WAS MOVING THE EXTREMITIES AND DOING WELL. THERE WERE NO COMPLICATIONS DURING THE PROCEDURE. ESTIMATED BLOOD LOSS WAS LESS THAN 5 ML. FLUOROSCOPIC TIME WAS 27 SECONDS. POST PROCEDURE NOTE THE PATIENT WILL BE SEEN IN A FOLLOW UP IN THE NEXT FEW WEEKS. I AM LOOKING FOR LONG LASTING RELIEF FOR THE PATIENT WITH THIS INTERVENTION. INSTRUCTIONS WERE GIVEN, QUESTIONS WERE ANSWERED AND THE PATIENT EXPRESSED UNDERSTANDING AND AGREES WITH THE PAIN. I, RAQUEL JAMISON, DOCUMENTED THE ABOVE INFORMATION ACTING A SCRIBE FOR DR. LORENZANA. I HAVE REVIEWED THE ABOVE DOCUMENT WRITTEN BY RAQUEL JAMISON, VIDEO POKER FLOORMAN, AND I VERIFY THAT IT IS ACCURATE. PROCEDURE CODES 26167 INJECT SACROILIAC JOINT, MODIFIERS: LT DISPOSITION & COMMUNICATION FOLLOW UP FOLLOW UP WITH TIMBER TREATMENT PLANT OPERATOR (REASON: POST LEFT SACROILIAC JOINT BLOCK) ELECTRONICALLY SIGNED BY EDNA LORENZANA MD, MD ON 12/23/2020 AT 12:34 PM EDT DISCLAIMER : THIS IS A VISIT SUMMARY EXTRACTED FROM THE [employer] CHART. IT IS NOT A COPY OF THE [employer] PROGRESS NOTE. DORA
== END ==
LOC: M PAIN 10:20
PROVIDERS: ATTEND Anesthesiology
DX: M46.1 Sacroiliitis, not elsewhere classified (principal); I10 Essential (primary) hypertension; R97.20 Elevated prostate specific antigen [PSA]; Z79.899 Other long term (current) drug therapy; Z88.5 Allergy status to narcotic agent
CPT/HCPCS: G0260; J3301; Q9967

== ENCOUNTER → 2021-01-05 | Outpatient (CLI) | payer MEDICARE ==
[~2021-01-05] MED LIST changes: -BUPIVACAINE HCL 0.25% 30ML VIAL As Ordered ONE; -ISOVUE-M 300 61% 15ML VIAL As Ordered ONE; -LIDOCAINE 1% SDV 30ML VIAL As Ordered ONE; -NORCO, ANEXSIA 5/325MG TABLET (HYDROcodone/ACETAMINOPHEN) As Ordered ONE; -TRIAMCINOLONE ACETONIDE SUSP 40 MG/ML VIAL (J3301) As Ordered ONE
--- NOTE | 2021-01-05 15:11 | REP ---
INDICATION: SACROILIITIS, NOT ELSEWHERE CLASSIFIED. COMPARISON: 09/20/2020. TECHNIQUE: Seven views lumbosacral spine including flexion and extension lateral views. FINDINGS: There is no compression fracture. There is normal lumbar lordosis. No subluxation is seen. There is mild diffuse spurring. The disc spaces are not significantly narrowed. There is sclerosis and spurring at the posterior facet joints diffusely, but especially at L4-5 and L5-S1. The posterior elements are intact. Metallic clips are seen in the right upper quadrant. IMPRESSION: No acute fracture or dislocation. Mild degenerative changes. <Electronically signed by Mauro Anthony > 01/05/21 [id number]
== END ==
LOC: M RAD 14:40
PROVIDERS: ATTEND Anesthesiology
DX: M46.1 Sacroiliitis, not elsewhere classified (principal)

== ENCOUNTER → 2021-01-05 | Outpatient (CLI) | payer MEDICARE | LOC: M PAIN 13:00 | PROVIDERS: ATTEND Anesthesiology | DX: G89.29 Other chronic pain (principal); M48.062 Spinal stenosis, lumbar region with neurogenic claudication; M47.816 Spondylosis without myelopathy or radiculopathy, lumbar region; I10 Essential (primary) hypertension; R97.20 Elevated prostate specific antigen [PSA]; Z79.899 Other long term (current) drug therapy; Z87.891 Personal history of nicotine dependence; Z88.5 Allergy status to narcotic agent ==

== ENCOUNTER → 2025-03-19 | Outpatient (CLI) | payer MEDICARE ==
[~2025-03-19] MED LIST changes: -FLOM0.4C39 PO; +LOSA50TA28 PO; -LOSA50TA88 PO; +TAMS-18 PO
== END ==
LOC: M RAD 09:32
PROVIDERS: ATTEND Nurse Practitioner Acute Care
DX: I65.21 Occlusion and stenosis of right carotid artery (principal)